=== PATIENT | female | born 1935 | race Two or more races ===

== ENCOUNTER 2016-03-26 12:56 | Inpatient (IN) | payer MEDICARE, OTHER ==
[~2016-03-26] VITALS: Ht 144.8 cm; Wt 62.6 kg
[~2016-03-26 12:56] MED LIST: BENA20TA2 PO; CHOL100044 PO; MEMA10TA PO; METO5TAB2 PO; OMEP20TA68 PO; PARO10TA26 PO; SIMV10TA6 PO; TRAM50TA2 PO
[2016-03-26] MEDS ORDERED: IV SET PRIMARY PUMP SET 1 EA INFUS.SET MC ONE ×2 (14:27→17:25)
[2016-03-26] MEDS ORDERED: LEVOFLOXACIN 750 MG /D5W 150ML 150 ML IV ONE ×2 (14:27→14:30)
[2016-03-26] MEDS ORDERED: IV NS 0.9% 2,000 ML ONE (14:27)
[2016-03-26] MEDS ORDERED: CEFTRIAXONE 1GM BAG (ER ONLY) 50 ML IV ONE ×2 (14:27→14:30)
[2016-03-26] MEDS ORDERED: IV NS 0.9% 1,000 ML BAG IV ONE (14:30)
[2016-03-26 14:31] LABS: BASOPHILS % (AUTO) 0.3 % (0.0-2.0); DIFF TOTAL % 100 %; EOSINOPHILS % (AUTO) 0.3 % (0.0-6.0); HEMATOCRIT 32 % (33-45); HEMOGLOBIN 10.6 g/dL (11.5-14.8); LYMPHOCYTES # (AUTO) 1.2 /CMM (0.8-4.8); LYMPHOCYTES % (AUTO) 9.5 % (20.0-44.0); MEAN CORPUSCULAR HEMOGLOBIN 28 PG (26.0-33.0); MEAN CORPUSCULAR HGB CONC 33 g/dl (31.0-36.0); MEAN CORPUSCULAR VOLUME 83 fL (82-100); MONOCYTES # (AUTO) 0.8 /CMM (0.1-1.30); MONOCYTES % (AUTO) 6.7 % (2.0-12.0); NEUTROPHILS # (AUTO) 10.4 /CMM (1.8-8.9); NEUTROPHILS % (AUTO) 83.2 % (43.0-81.0); PLATELET COUNT (AUTO) 401 /CMM (150-450); RED BLOOD CELL COUNT(AUTO) 3.85 MIL/uL (4.0-5.2); WHITE BLOOD COUNT (AUTO) 12.4 K/uL (4.3-11.0)
[2016-03-26 14:39] LABS: CALCIUM, SERUM 8.7 mg/dL (8.5-10.1); CREATININE 1.5 mg/dL (0.6-1.3)
[2016-03-26 15:05] LABS: LACTIC ACID 0.8 mmol/L (0.4-2.0)
[2016-03-26 15:13] LABS: ANISOCYTOSIS 1+; LYMPHOCYTES % (MANUAL) 8 % (16-48); PLATELET ESTIMATE ADEQUATE
[2016-03-26 15:52] LABS: KETONES,URINE Negative (NEGATIVE); LEUKOCYTE ESTERASE ,URINE Trace (NEGATIVE); PH,URINE 5.5 (5.0-8.0)
[2016-03-26 15:58] LABS: ADD UA MICROSCOPIC YES
[2016-03-26 15:59] LABS: ADD URINE CULTURE NO
[2016-03-26 16:50] VITALS: BP 141/71
[2016-03-26] MEDS ORDERED: IV NS 0.9% 1,000 ML IV PRN (16:53)
[2016-03-26 17:00] VITALS: BP 148/70
[2016-03-26] MEDS ORDERED: MAG HYDROX/AL HYDROX/SIMETH 30 ML UDC PO PRN (17:00)
[2016-03-26] MEDS ORDERED: ONDANSETRON HCL/PF 4 MG/2 ML VIAL IVP PRN (17:00)
[2016-03-26] MEDS ORDERED: MAGNESIUM HYDROXIDE 30 ML UDC PO PRN (17:00)
[2016-03-26] MEDS ORDERED: CEFTRIAXONE 1 G in IV D5W 50 ML IV SCH ×2 (17:00→18:00)
[2016-03-26] MEDS ORDERED: Z GUARD REMEDY 2 OZ OINT TP PRN (17:00)
[2016-03-26] MEDS ORDERED: HYDROCODONE/APAP 5/325MG 1 EACH TABLET PO PRN (17:00)
[2016-03-26] MEDS ORDERED: ACETAMINOPHEN 325 MG TABLET PO PRN (17:00)
[2016-03-26] MEDS ORDERED: SECONDARY IV SET 1 EA INFUS.SET MC ONE (18:45)
[2016-03-26] MEDS: AZITHROMYCIN 500 MG in IV D5W 250 ML IV SCH (18:48)
[2016-03-26 20:00] VITALS: BP 151/77
[2016-03-26] MEDS: ZOLPIDEM TARTRATE 5 MG TABLET PO PRN (21:39)
[2016-03-27 08:00] VITALS: BP 151/69
[2016-03-27] MEDS: PANTOPRAZOLE 40 MG TABLET.DR PO SCH (10:06)
[2016-03-27 12:03] LABS: BASOPHILS % (AUTO) 0.2 % (0.0-2.0); DIFF TOTAL % 100 %; EOSINOPHILS % (AUTO) 0.4 % (0.0-6.0); HEMATOCRIT 31 % (33-45); HEMOGLOBIN 10.3 g/dL (11.5-14.8); LYMPHOCYTES # (AUTO) 0.9 /CMM (0.8-4.8); LYMPHOCYTES % (AUTO) 9.6 % (20.0-44.0); MEAN CORPUSCULAR HEMOGLOBIN 27 PG (26.0-33.0); MEAN CORPUSCULAR HGB CONC 33 g/dl (31.0-36.0); MEAN CORPUSCULAR VOLUME 83 fL (82-100); MONOCYTES # (AUTO) 0.9 /CMM (0.1-1.30); MONOCYTES % (AUTO) 9.9 % (2.0-12.0); NEUTROPHILS # (AUTO) 7.6 /CMM (1.8-8.9); NEUTROPHILS % (AUTO) 79.9 % (43.0-81.0); PLATELET COUNT (AUTO) 395 /CMM (150-450); RED BLOOD CELL COUNT(AUTO) 3.77 MIL/uL (4.0-5.2); WHITE BLOOD COUNT (AUTO) 9.5 K/uL (4.3-11.0)
[2016-03-27 12:49] LABS: ALBUMIN 2.7 g/dL (3.4-5.0); BILIRUBIN,TOTAL 0.2 mg/dL (0.2-1.0); CALCIUM, SERUM 8.9 mg/dL (8.5-10.1); CREATININE 1.7 mg/dL (0.6-1.3); POTASSIUM 3.8 mmol/L (3.5-5.1); TOTAL PROTEIN, SERUM 6.8 g/dL (6.4-8.2)
[2016-03-27] MEDS ORDERED: CEFTRIAXONE 1 G in IV D5W 50 ML IV SCH (14:00)
[2016-03-27] MEDS ORDERED: SECONDARY IV SET 1 EA INFUS.SET MC ONE (14:01)
[2016-03-27 16:02] VITALS: BP 161/72
[2016-03-27] MEDS ORDERED: ZOLPIDEM TARTRATE 5 MG TABLET PO PRN (17:00)
[2016-03-27] MEDS ORDERED: IV SET PRIMARY 1 EA INFUS.SET MC ONE (17:16)
[2016-03-27] MEDS ORDERED: IV NS 0.9% 1,000 ML ONE (17:19)
[2016-03-27] MEDS ORDERED: IV SET PRIMARY PUMP SET 1 EA INFUS.SET MC ONE (18:28)
[2016-03-27] MEDS: AZITHROMYCIN 500 MG in IV D5W 250 ML IV SCH (18:54)
[2016-03-27 20:00] VITALS: BP 153/67
[2016-03-27] MEDS: ZOLPIDEM TARTRATE 5 MG TABLET PO PRN (21:01)
[2016-03-28 08:00] VITALS: BP 134/61
[2016-03-28] MEDS: PANTOPRAZOLE 40 MG TABLET.DR PO SCH (08:28)
[2016-03-28] MEDS ORDERED: SECONDARY IV SET 1 EA INFUS.SET MC ONE (12:39)
[2016-03-28] MEDS ORDERED: IV SET PRIMARY PUMP SET 1 EA INFUS.SET MC ONE (12:39)
[2016-03-28] MEDS ORDERED: IV NS 0.9% 250 ML IV ONE (12:39)
[2016-03-28] MEDS ORDERED: LEVO750T21 PO (13:33)
[2016-03-28] MEDS ORDERED: LACTOBACILLUS RHAMNOSUS GG 1 EACH CAP.SPRINK PO SCH (17:00)
== END 2016-03-28 15:00 | disposition home or self-care (01) | DRG 871 ==
LOC: ER 12:57 → TELE 16:07 → MED 20:47
PROVIDERS: ADMIT Internal Medicine; ATTEND Internal Medicine
DX: A41.9 Sepsis, unspecified organism (principal); N17.0 Acute kidney failure with tubular necrosis; J15.9 Unspecified bacterial pneumonia; F03.90 Unspecified dementia, unspecified severity, without behavioral disturbance, psychotic disturbance, mood disturbance, and anxiety; I10 Essential (primary) hypertension; E78.5 Hyperlipidemia, unspecified; K21.9 Gastro-esophageal reflux disease without esophagitis; D63.8 Anemia in other chronic diseases classified elsewhere; E86.9 Volume depletion, unspecified; G47.00 Insomnia, unspecified
CPT/HCPCS: 36415; 71010-TC; 80048-TC; 80053-TC; 80061-TC; 81000-TC; 83605-TC; 83735-TC; 84100-TC; 85025-TC; 87040-TC; 87081-TC; 87086-TC; 87400; A4606; J0456; J0696; J1956; J7030; J7050; J7060; Z7610